=== PATIENT | female | born 1990 | race Caucasian/White ===

== ENCOUNTER 2020-04-18 00:27 | Outpatient (CLI) | payer BC, SELFPAY ==
--- NOTE | 2020-04-18 | DI.US_ITS ---
EXAM: US OB 2-3 TRIMESTER CLINICAL HISTORY: ANATOMY SCAN Z34.02 SUPERVISION NORMAL TECHNIQUE: Ultrasound performed using standard protocol. COMPARISON: No exams were available for comparison FINDINGS: Ob ultrasound was performed utilizing 2nd trimester protocol. biometry is consistent with gest ational age of 20 weeks 5 days and an EDC of August 31, 2020. Placenta is posterior with no evidence of placenta previa. There is visually a normal quantity of am niotic fluid. anomaly screen is within normal limits as per the attached checklist. heart rate is 155 BPM. IMPRESSION: DATA REPOSITORY:
== END 2020-04-18 00:47 ==
PROVIDERS: PCP Family Medicine; Visit Provider Family Medicine
DX: Z34.92 Encounter for supervision of normal pregnancy, unspecified, second trimester (principal)
CPT/HCPCS: 76805

== ENCOUNTER 2020-09-01 10:00 | Outpatient (CLI) | payer BC, SELFPAY ==
[2020-09-01 10:38] VITALS: BP 151/99; PULSE 107; TEMP 36.9
[2020-09-01 10:49] VITALS: BP 151/99; PULSE 107
[2020-09-01 11:09] VITALS: BP 137/72; PULSE 93
--- NOTE | 2020-09-01 11:12 | W.OBNST ---
Date of service: 09/01/20 Time of Service: 11:13 NST Evaluation Reason for NST Reasons for Nonstress Test: DECREASED MOVEMENT Gestational Age Gestational Age in Weeks and Days: 40 Weeks and 1Days Test and Monitor Explained Test/Monitor Explained: Test Explained and Monitor Explained Vital Signs Blood Pressure: 151/99 (137/72 on repeat) Pulse: 107 Temperature: 36.9 C Urine Results Urine Protein: Negative Urine Ketones: Negative Urine Glucose: Positive Urine Blood: Positive NST Information Date on Monitor: 09/01/20 Time on Monitor: 10:43 Date off Monitor: 09/01/20 Time off Monitor: 11:07 Total Time on Monitor: 24 NST Interventions: PO Hydration NST Evaluation Patient States Movement: Present FHR Baseline: 145 Variability: Moderate 6-25 bpm Accelerations: 15x15 Decelerations: None NST Results: Reactive Note NST Note Note: 30 yo at 40w 1 d who called with absent movement for several hours. 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 Patient is eating and drinking well. Called last night with some spotting after having her membranes stripped on , she reports she has had no further episodes of spotting today. She feels well, no contractions, no LOF. Denies headache, edema, visual changes, abdominal pain. CE on 07/22/-3 and vertex. Patient placed on monitor for 20 minutes, cat 1 with accels and mod variability, no decels, 2 contractions 15 minutes apart that she did not feel. BP initially elevated but improved to 137/72 with no proteinuria. Discharged to home with return precautions. Has appointment Thursday and will plan for induction Thursday night for postdates and elevated BP NST Reviewed and Verified by: Cristobal
[2020-09-01 11:16] VITALS: BP 151/99; PULSE 107; TEMP 36.9
== END 2020-09-01 11:20 | disposition home or self-care (01) ==
LOC: BCD 10:03 → OBS 10:37
PROVIDERS: PCP Family Medicine; Visit Provider Family Medicine
DX: O36.8130 Decreased fetal movements, third trimester, not applicable or unspecified (principal); Z3A.40 40 weeks gestation of pregnancy
CPT/HCPCS: 59025

== ENCOUNTER 2020-09-03 22:35 | Observation (INO) | payer BC, SELFPAY ==
[2020-09-03 23:55] VITALS: BP 135/78; PULSE 99
[2020-09-04 00:15] VITALS: BP 135/78; TEMP 36.6
[2020-09-04 00:29] LABS: ROM Plus Negative
== END 2020-09-04 01:00 | disposition home or self-care (01) ==
LOC: OBS 09-04 08:32
PROVIDERS: Admitting Provider Family Medicine; PCP Family Medicine; Visit Provider Family Medicine
DX: O13.3 Gestational [pregnancy-induced] hypertension without significant proteinuria, third trimester (principal)
CPT/HCPCS: 84112

== ENCOUNTER 2020-09-04 10:56 | Inpatient (IN) | payer BC, SELFPAY ==
[2020-09-04] VITALS (60 sets, daily range): BP systolic 117–151; BP diastolic 55–87; PULSE 80–123; RESP 14–16; TEMP 36.8–36.9; O2SAT 97–100
--- NOTE | 2020-09-04 11:32 | W.PM.OBHPL1 ---
Date of service: 09/04/20 Time of Service: 11:32 Assessment and Plan Assessment and plan (1) : Status: Acute Assessment and plan: Latent phase ofterm labor with minimal cervical change but elevated BP. Will admit and augment with pitocin. Monitor BPs, no proteinuria, no severe features. Treat as necessary. Qualifiers: Weeks of gestation: 40 weeks Qualified Code(s): Z3A.40 - 40 weeks gestation of (2) Gestational hypertension affecting first : Status: Acute Assessment and plan: see above OB-HPI Labor/Delivery History of Present Illness Reason for Visit: LABOR Chief Complaint: Uterine Contractions; Signs/Symptoms Gestational HTN , Associated Signs and Symptoms of GestationalHTN: elevated bp. YAAKOV Calculator Estimated Delivery Date Method Current WG Current Estimate 08/31/20 LMP (Certain) 40w 4d History of Present Expected Delivery Route/Plan 30y at 40.4w by LMP with GBS- Rh- HepB- RI. complicated by elevated blood pressures in the last few weeks with normal labs and no proteinuria. No symptoms including headache, vision changes, or increased edema. Plan had been for induction for hypertension of , but she began harika spontaneously yesterday morning. She has had mild contractions every 5-7 min since then, but made no cervical change. SVE this morning in the office was 1/50/-2. BP in the office was 160/90, so she was admitted in early labor for augmentation due to hypertension. Here, her BP was normal. Assessment: History Reviewed & Current Informed Consent Informed Consent: Augmentation of Labor Review of Systems All systems reviewed & are unremarkable except as noted in HPI and below PFSH Social History Smoking risk assessment performed?: No History History 2 Para 0 Hx # Term Pregnancies Multiple births Hx # Pregnancies Ectopic pregnancies AB induced Hx Number of Living Children AB spontaneous Exam Physical Exam Vital Signs Reviewed: Yes Detailed Labor and Delivery Exam Dilation: 1 Effacement (%): 50 station: -2 Cervix position: anterior Consistency: soft Friedman Score: Cervical Points Exam 0 1 2 3 Dilation Closed 1-2cm 3-4 cm 5-6cm Effacement 0-30% 40-50% 60-70% 80% Consistency Firm Medium Soft Station -3 -2 -1,0 +1,+2 Position Posterior Mid Anterior FRIEDMAN Score(Cervical Ripeness Score): 7 Amniotic Membrane Status: Intact Monitor Mode: External Contraction Frequency(min): 5 Contraction Duration(sec): 60-90 Contraction Intensity: Mild Fetus A Heart Rate Baseline: 150 Monitor Accelerations: 15 X 15 Monitor Decelerations: Early Variability: Moderate (6-25 BPM) Presentation: Cephalic Categories: Category I Respiratory Exam Respiratory Exam: Normal Cardiovascular Exam Cardiovascular Exam: Normal Abdominal Exam Abdominal Exam: Normal Detailed Neurological Exam Neurological: Present alert and oriented X3 Comments: 2+ patellar reflexes bilaterally Results Results Group Beta Strep: Negative Blood Type: O- Rubella Status: Immune Varicella Immunity: Not Tested Risk Assessment Risk for Shoulder Dystocia Increased Risk?: No Risk for Pre-Eclampsia Daily Dose ASA Indicated: No Yes, if one or more: POSTIVE FOR: Hx Pre-E/Gest HTN; NEGATIVE FOR: Chronic HTN, Multiple Gestation, Pre-gestational DM, Renal Disease, Systemic Lupus or APA Syndrome Yes, if 2 or more: NEGATIVE FOR: Nulliparity, Age>= 35 yrs, >10yr btwn pregnancies, BMI>30, ethinicty, Mother/Sister w/ Pre-E or Previous IUGR Risk for Post- Hemorrhage Initial: NEGATIVE FOR: Multiple Gestation, Previous PPH, Known Clotting Deficiency, Grand Multiparity or Anticoagulation At Risk?: No Risks Reviewed Risks Reviewed Upon Admission: Yes
[2020-09-04 11:55] LABS: HGB 11.3 g/dL (11.2-15.7); MCH 27.8 pg (27.0-33.0); MCHC 33.2 % (32.0-36.0); MCV 83.7 fL (80-95); MPV 9.9 fL (8.0-11.0); Platelet Count 207 10^3/uL (130-400); RBC 4.06 10^6/uL (3.93-5.22); RDW-SD 39.7 fL; WBC 14.76 10^3/uL (4.4-10.8)
[2020-09-04] MEDS: Lactated Ringers 1,000 ML 125 ML IV ×2 (12:19→21:11)
[2020-09-04] MEDS: Oxytocin/Normal Saline 30 UNIT/500 ML BAG 4 UNITS IV (12:19)
[2020-09-04 12:27] LABS: Influenza A PCR Negative (Negative); Influenza B PCR Negative (Negative); RSV PCR Negative (Negative)
[2020-09-04 12:28] LABS: COVID-19 PCR Negative (Negative)
--- NOTE | 2020-09-04 14:17 | W.PM.OBNL1 ---
Date of service: 09/04/20 Time of Service: 14:19 Informed Consent Informed Consent: Augmentation of Labor Pelvic Exam Dilation: 2 Effacement (%): 50 station: -2 Cervix Position: anterior Consistency: soft BISHOPS Score(Cervical Ripeness Score): 7 Vaginal Exam Presentation: Cephalic Contractions Monitor Mode: External Contraction Frequency(min): 5 Contraction Duration(sec): 60 Intensity: Mild Fetus A Presentation: Cephalic Variability: Moderate (6-25 BPM) Categories: Category I FHR Rhythm: Regular Characteristics: Normal Accelerations: 15 X 15 Decelerations: None Amniotic Membrane Status: Intact Assessment and Plan Assessment and plan (1) Gestational hypertension affecting first : Status: Acute Assessment and plan: see above (2) : Status: Acute Assessment and plan: Doing well, slight change in SVE. Will continue to titrate up pitocin. BP all very normal here. Continue to monitor. Qualifiers: Weeks of gestation: 40 weeks Qualified Code(s): Z3A.40 - 40 weeks gestation of Objective Abnormal lab results 09/04/20 Range/Units 11:40 WBC 14.76 H (4.4-10.8) 10^3/uL Hct 34.0 L (36.0-46.0) % Temp Pulse Resp BP Pulse Ox 36.9 C 100 H 14 119/72 98 09/04/20 13:18 09/04/20 13:09 09/04/20 11:15 09/04/20 13:09 09/04/20 13:18 Laboratory Results WBC 14.76 10^3/uL (4.4-10.8) H 09/04/20 11:40 RBC 4.06 10^6/uL (3.93-5.22) 09/04/20 11:40 Hgb 11.3 g/dL (11.2-15.7) 09/04/20 11:40 Hct 34.0 % (36.0-46.0) L 09/04/20 11:40 MCV 83.7 fL (80-95) 09/04/20 11:40 MCH 27.8 pg (27.0-33.0) 09/04/20 11:40 MCHC 33.2 % (32.0-36.0) 09/04/20 11:40 RDW 13.0 % (11.7-14.6) 09/04/20 11:40 Plt Count 207 10^3/uL (130-400) 09/04/20 11:40 MPV 9.9 fL (8.0-11.0) 09/04/20 11:40 COVID-19 Source Nasopharyx 09/04/20 11:35 SARS-CoV-2 (PCR) Negative (Negative) 09/04/20 11:35 Influenza Type A (PCR) Negative (Negative) 09/04/20 11:35 Influenza Type B (PCR) Negative (Negative) 09/04/20 11:35 RSV (PCR) Negative (Negative) 09/04/20 11:35 Patient ABO/Rh O Negative 09/04/20 11:40 Antibody Screen Positive 09/04/20 11:40 Antibody Identification Anti-D 09/04/20 11:40 Subjective Patient Reports: No new Complaints Interval history since last seen: Michell is doing well. Pitocin has increased the intensity of her contractions somewhat but still fairly comfortable. Results Hemoglobin/Hematocrit: Hgb 11.3 g/dL (11.2-15.7) 09/04/20 11:40 Hct 34.0 % (36.0-46.0) L 09/04/20 11:40 Abnormal Lab Findings: Abnormal Labs 09/04/20 11:40 WBC 14.76 H Hct 34.0 L
--- NOTE | 2020-09-04 16:23 | W.PM.OBNL1 ---
Date of service: 09/04/20 Time of Service: 16:23 Informed Consent Informed Consent: Augmentation of Labor Pelvic Exam Dilation: 3 Effacement (%): 60 station: -2 Cervix Position: anterior Consistency: soft Vaginal Exam Presentation: Cephalic Contractions Monitor Mode: External Contraction Frequency(min): 2 Contraction Duration(sec): 60 Intensity: Mild/Moderate Fetus A Monitor: External (US) Heart Rate Baseline: 150 Presentation: Cephalic Variability: Moderate (6-25 BPM) Categories: Category I FHR Rhythm: Regular Characteristics: Normal Accelerations: 15 X 15 Decelerations: Variable Recurrence: Intermittent Amniotic Membrane Status: Intact Assessment and Plan Assessment and plan (1) Gestational hypertension affecting first : Status: Acute Assessment and plan: Last BP 139/85, likely due to increased pain. Continue to monitor. (2) : Status: Acute Assessment and plan: Michell is progressing slowly, SVE now 3/60/-2. She is more uncomfortable and would like to use Nitrous. Anesthesia has consented her and she would like an epidural at some point. Pitocin at 8 with contractions q2m. Continue present management. Consider AROM once she is more comfortable. Qualifiers: Weeks of gestation: 40 weeks Qualified Code(s): Z3A.40 - 40 weeks gestation of Objective Abnormal lab results 09/04/20 Range/Units 11:40 WBC 14.76 H (4.4-10.8) 10^3/uL Hct 34.0 L (36.0-46.0) % Temp Pulse Resp BP Pulse Ox 36.8 C 101 H 16 139/85 98 09/04/20 14:27 09/04/20 14:27 09/04/20 14:27 09/04/20 14:27 09/04/20 13:18 Laboratory Results WBC 14.76 10^3/uL (4.4-10.8) H 09/04/20 11:40 RBC 4.06 10^6/uL (3.93-5.22) 09/04/20 11:40 Hgb 11.3 g/dL (11.2-15.7) 09/04/20 11:40 Hct 34.0 % (36.0-46.0) L 09/04/20 11:40 MCV 83.7 fL (80-95) 09/04/20 11:40 MCH 27.8 pg (27.0-33.0) 09/04/20 11:40 MCHC 33.2 % (32.0-36.0) 09/04/20 11:40 RDW 13.0 % (11.7-14.6) 09/04/20 11:40 Plt Count 207 10^3/uL (130-400) 09/04/20 11:40 MPV 9.9 fL (8.0-11.0) 09/04/20 11:40 COVID-19 Source Nasopharyx 09/04/20 11:35 SARS-CoV-2 (PCR) Negative (Negative) 09/04/20 11:35 Influenza Type A (PCR) Negative (Negative) 09/04/20 11:35 Influenza Type B (PCR) Negative (Negative) 09/04/20 11:35 RSV (PCR) Negative (Negative) 09/04/20 11:35 Patient ABO/Rh O Negative 09/04/20 11:40 Antibody Screen Positive 09/04/20 11:40 Antibody Identification Anti-D 09/04/20 11:40 Subjective Patient Reports: No new Complaints Interval history since last seen: Contractions have gotten more painful. Results Hemoglobin/Hematocrit: Hgb 11.3 g/dL (11.2-15.7) 09/04/20 11:40 Hct 34.0 % (36.0-46.0) L 09/04/20 11:40 Abnormal Lab Findings: Abnormal Labs 09/04/20 11:40 WBC 14.76 H Hct 34.0 L
--- NOTE | 2020-09-04 17:25 | W.PM.OBNL1 ---
Date of service: 09/04/20 Time of Service: 17:26 Informed Consent Informed Consent: Augmentation of Labor Pelvic Exam station: -2 Cervix Position: anterior Consistency: soft Vaginal Exam Presentation: Cephalic Contractions Monitor Mode: External Contraction Frequency(min): 3 Contraction Duration(sec): 60 Intensity: Moderate Fetus A Monitor: External (US) Variability: Moderate (6-25 BPM) Categories: Category I Characteristics: Normal Accelerations: 15 X 15 Decelerations: Variable Recurrence: Intermittent Amniotic Membrane Status: Ruptured Assessment Note: AROM performed with light mec, moderate fluid Assessment and Plan Assessment and plan (1) Gestational hypertension affecting first : Status: Acute Assessment and plan: BPs stable (2) : Status: Acute Assessment and plan: Discussed AROM with Ramírez and they agreed to proceed. Performed without incident, light mec. Since rupture, some mild late decelerations but lots of movement in mom, with strip effected. Will monitor closely. Qualifiers: Weeks of gestation: 40 weeks Qualified Code(s): Z3A.40 - 40 weeks gestation of Objective Abnormal lab results 09/04/20 Range/Units 11:40 WBC 14.76 H (4.4-10.8) 10^3/uL Hct 34.0 L (36.0-46.0) % Temp Pulse Resp BP Pulse Ox 36.8 C 101 H 16 139/85 98 09/04/20 14:27 09/04/20 14:27 09/04/20 14:27 09/04/20 14:27 09/04/20 13:18 Laboratory Results WBC 14.76 10^3/uL (4.4-10.8) H 09/04/20 11:40 RBC 4.06 10^6/uL (3.93-5.22) 09/04/20 11:40 Hgb 11.3 g/dL (11.2-15.7) 09/04/20 11:40 Hct 34.0 % (36.0-46.0) L 09/04/20 11:40 MCV 83.7 fL (80-95) 09/04/20 11:40 MCH 27.8 pg (27.0-33.0) 09/04/20 11:40 MCHC 33.2 % (32.0-36.0) 09/04/20 11:40 RDW 13.0 % (11.7-14.6) 09/04/20 11:40 Plt Count 207 10^3/uL (130-400) 09/04/20 11:40 MPV 9.9 fL (8.0-11.0) 09/04/20 11:40 COVID-19 Source Nasopharyx 09/04/20 11:35 SARS-CoV-2 (PCR) Negative (Negative) 09/04/20 11:35 Influenza Type A (PCR) Negative (Negative) 09/04/20 11:35 Influenza Type B (PCR) Negative (Negative) 09/04/20 11:35 RSV (PCR) Negative (Negative) 09/04/20 11:35 Patient ABO/Rh O Negative 09/04/20 11:40 Antibody Screen Positive 09/04/20 11:40 Antibody Identification Anti-D 09/04/20 11:40 Subjective Interval history since last seen: Michell is getting some relief from nitrous. She is getting tired and uncomfortable Results Hemoglobin/Hematocrit: Hgb 11.3 g/dL (11.2-15.7) 09/04/20 11:40 Hct 34.0 % (36.0-46.0) L 09/04/20 11:40 Abnormal Lab Findings: Abnormal Labs 09/04/20 11:40 WBC 14.76 H Hct 34.0 L Procedure Procedures: Other (AROM)
[2020-09-04] MEDS: Lactated Ringers 500 ML IV (17:50)
[2020-09-04] MEDS: FentaNYL/ROPIvacaine 2 mcg/ml and 0.1% 200 ML CADD Cassette EP (19:06)
--- NOTE | 2020-09-04 20:04 | W.PM.OBNL1 ---
Date of service: 09/04/20 Time of Service: 20:04 Informed Consent Informed Consent: Augmentation of Labor Pelvic Exam Dilation: 5.5 Effacement (%): 80 station: -2 Cervix Position: anterior Consistency: soft Vaginal Exam Presentation: Cephalic Contractions Monitor Mode: External Contraction Frequency(min): 6 Contraction Duration(sec): 45 Fetus A Monitor: External (US) Heart Rate Baseline: 150 Presentation: Cephalic Variability: Moderate (6-25 BPM) Categories: Category I Characteristics: Normal Accelerations: 15 X 15 Decelerations: None Amniotic Membrane Status: Ruptured Assessment and Plan Assessment and plan (1) Gestational hypertension affecting first : Status: Acute Assessment and plan: BP stable, continue to monitor (2) : Status: Acute Assessment and plan: Michell is doing well, more comfortable with epidural in despite a difficult placement. Resting now. Pitocin continues to be titrated, now at 12. SVE 5.5/80/-2. Continue current management. Qualifiers: Weeks of gestation: 40 weeks Qualified Code(s): Z3A.40 - 40 weeks gestation of Objective Abnormal lab results 09/04/20 Range/Units 11:40 WBC 14.76 H (4.4-10.8) 10^3/uL Hct 34.0 L (36.0-46.0) % Temp Pulse Resp BP Pulse Ox 36.8 C 98 H 16 136/65 99 09/04/20 19:41 09/04/20 20:01 09/04/20 19:41 09/04/20 20:01 09/04/20 19:10 Laboratory Results WBC 14.76 10^3/uL (4.4-10.8) H 09/04/20 11:40 RBC 4.06 10^6/uL (3.93-5.22) 09/04/20 11:40 Hgb 11.3 g/dL (11.2-15.7) 09/04/20 11:40 Hct 34.0 % (36.0-46.0) L 09/04/20 11:40 MCV 83.7 fL (80-95) 09/04/20 11:40 MCH 27.8 pg (27.0-33.0) 09/04/20 11:40 MCHC 33.2 % (32.0-36.0) 09/04/20 11:40 RDW 13.0 % (11.7-14.6) 09/04/20 11:40 Plt Count 207 10^3/uL (130-400) 09/04/20 11:40 MPV 9.9 fL (8.0-11.0) 09/04/20 11:40 COVID-19 Source Nasopharyx 09/04/20 11:35 SARS-CoV-2 (PCR) Negative (Negative) 09/04/20 11:35 Influenza Type A (PCR) Negative (Negative) 09/04/20 11:35 Influenza Type B (PCR) Negative (Negative) 09/04/20 11:35 RSV (PCR) Negative (Negative) 09/04/20 11:35 Patient ABO/Rh O Negative 09/04/20 11:40 Antibody Screen Positive 09/04/20 11:40 Antibody Identification Anti-D 09/04/20 11:40 Subjective Interval history since last seen: Michell has gotten her epidural and is now much more comfortable despite a difficult insertion. Minimally feeling contractions, getting some rest. Results Hemoglobin/Hematocrit: Hgb 11.3 g/dL (11.2-15.7) 09/04/20 11:40 Hct 34.0 % (36.0-46.0) L 09/04/20 11:40 Abnormal Lab Findings: Abnormal Labs 09/04/20 11:40 WBC 14.76 H Hct 34.0 L
[2020-09-04] MEDS: Ondansetron O.D.T. 4 MG TABEF 8 MG PO (21:27)
--- NOTE | 2020-09-04 22:51 | W.PM.OBNL1 ---
Date of service: 09/04/20 Time of Service: 22:51 Informed Consent Informed Consent: Augmentation of Labor Pelvic Exam Dilation: 10 Effacement (%): 100 station: 0 Cervix Position: anterior Consistency: soft Vaginal Exam Presentation: Cephalic Contractions Monitor Mode: External Contraction Frequency(min): 4 Contraction Duration(sec): 60 Fetus A Monitor: External (US) Heart Rate Baseline: 140 Presentation: Cephalic Variability: Moderate (6-25 BPM) Categories: Category I Characteristics: Normal Accelerations: 15 X 15 Decelerations: Variable Recurrence: Intermittent Amniotic Membrane Status: Ruptured Assessment and Plan Assessment and plan (1) Gestational hypertension affecting first : Status: Acute Assessment and plan: Pressures are normal (2) : Status: Acute Assessment and plan: Michell is doing great. She is fully dilated but not feeling like she needs to push. She will continue to labor down and let us know when she feels the urge to push. FHT category 1. Qualifiers: Weeks of gestation: 40 weeks Qualified Code(s): Z3A.40 - 40 weeks gestation of Objective Abnormal lab results 09/04/20 Range/Units 11:40 WBC 14.76 H (4.4-10.8) 10^3/uL Hct 34.0 L (36.0-46.0) % Temp Pulse Resp BP Pulse Ox 36.8 C 113 H 16 128/87 99 09/04/20 19:41 09/04/20 22:46 09/04/20 19:41 09/04/20 22:46 09/04/20 19:10 Laboratory Results WBC 14.76 10^3/uL (4.4-10.8) H 09/04/20 11:40 RBC 4.06 10^6/uL (3.93-5.22) 09/04/20 11:40 Hgb 11.3 g/dL (11.2-15.7) 09/04/20 11:40 Hct 34.0 % (36.0-46.0) L 09/04/20 11:40 MCV 83.7 fL (80-95) 09/04/20 11:40 MCH 27.8 pg (27.0-33.0) 09/04/20 11:40 MCHC 33.2 % (32.0-36.0) 09/04/20 11:40 RDW 13.0 % (11.7-14.6) 09/04/20 11:40 Plt Count 207 10^3/uL (130-400) 09/04/20 11:40 MPV 9.9 fL (8.0-11.0) 09/04/20 11:40 COVID-19 Source Nasopharyx 09/04/20 11:35 SARS-CoV-2 (PCR) Negative (Negative) 09/04/20 11:35 Influenza Type A (PCR) Negative (Negative) 09/04/20 11:35 Influenza Type B (PCR) Negative (Negative) 09/04/20 11:35 RSV (PCR) Negative (Negative) 09/04/20 11:35 Patient ABO/Rh O Negative 09/04/20 11:40 Antibody Screen Positive 09/04/20 11:40 Antibody Identification Anti-D 09/04/20 11:40 Subjective Interval history since last seen: Michell is comfortable, feeling minimal pressure with contractions. She is tired Results Hemoglobin/Hematocrit: Hgb 11.3 g/dL (11.2-15.7) 09/04/20 11:40 Hct 34.0 % (36.0-46.0) L 09/04/20 11:40 Abnormal Lab Findings: Abnormal Labs 09/04/20 11:40 WBC 14.76 H Hct 34.0 L
[2020-09-05] VITALS (13 sets, daily range): BP systolic 122–137; BP diastolic 60–90; PULSE 94–126; RESP 16–20; TEMP 36.4–37.1; O2SAT 97–99
--- NOTE | 2020-09-05 00:25 | W.OBDELIVERY ---
Date of service: 09/05/20 Time of Service: 00:25 OB Labor/ Delivery Information Baby A Delivery Delivery Method: Spontaneaous Presentation: Cephalic Cephalic Position: Vertex Vertex Position: Left Occipital Anterior Cord Description-Baby A: 3 Vessels and Nuchal Cord (single loose nuchal cord, delivered through) Amniotic Fluid: Meconium (light mec) Estimated Blood Loss: 100 Delivery Outcome: Liveborn Complications: none Infant Transferred: Remains with Mother Note: 30y X6Wmuw2 with Rh- GBS- RI, HSv+ on acyclovir since 36weeks sp . complicated by hypertension without proteinuria, not in the sever range. Labor was uncomplicated and there was a category 1 strip throughout. Pitocin was effective, with no negative effects on baby. Epidural effective. Mom pushed for approx 40min with excellent progress. Baby born in NATALIE position with loose nuchal cord. Delivered through. Stunned immediately but responded to stimulation, apgars of 7 and 9. No lacerations. Mom doing well. Providers Doctor: Tal Gunter Nurse: Pam Betancourt Nurse: Danielle Mccoy Other: Medical Student assisted, Susu CASTRO also present at Labor/Delivery Information Number of Babies in Womb: 1 Steroids Given: None Reason Steroids Not Administered: N/A Group Beta Strep: Negative Antibiotics Administered: No Rubella Status: Immune Blood Type: O- Varicella Immunity: Not Tested Born En Route: No Shoulder Dystocia: No Stages of Labor Onset of Labor Date: 09/04/20 Onset of Labor Time: 11:00 Complete Dilatation Date: 09/04/20 Complete Dilatation Time: 22:39 Labor - Stage 1 Duration: 0 minutes ROM Baby A: 09/04/20 ROM Baby A: 17:10 ROM Total Time- Baby A: [id number] Delivery Date-Baby A: 09/05/20 Infant Delivery Time-Baby A: 00:10 Labor Stage 2 Duration: 1 hours and 31 minutes Placenta Delivery Date-Baby A: 09/05/20 Placenta Delivery Time-Baby A: 00:15 Labor-Stage 3 Duration: 5 minutes Total Length of Labor-Baby A: 13 hours and 10 minutes Placenta Cultured: No Placenta Status: Delivered Baby A Infant Gender: Male Gestational Status: Term (39-41.6 wks) Gestational Age in Weeks/Days: 40 Weeks and 5 Days Score-1 Minute Interval(Baby A) Heart Rate-1 minute: 100 BPM or Greater Respiratory Effort- 1 minute: Spontaneous/Strong Cry Muscle Tone-1 minute: Minimal Flexion/Extension Reflex Response-1 minute: Prompt Response Color-1 minute: Pallor or Cyanosis Score-5 Minute Interval(Baby A) Heart Rate- 5 minute: 100 BPM or Greater Respiratory Effort-5 minute: Spontaneous/Strong Cry Muscle Tone-5 minute: Active Movement Reflex Response-5 minute: Prompt Response Color-5 minute: Bluish Hands or Feet Shoulder Dystocia Delivery Times Date of Delivery of Head: 09/05/20
[2020-09-05] MEDS: Acetaminophen 325 MG TAB 650 MG PO ×2 (10:02→20:20)
[2020-09-05] MEDS: Ibuprofen 600 MG TAB PO ×2 (10:03→20:21)
--- NOTE | 2020-09-05 15:53 | W.PM.OBPNV1 ---
Date of service: 09/05/20 Time of Service: 15:53 Assessment and Plan Assessment and plan (1) care following vaginal delivery: Status: Acute Assessment and plan: day 0 ss/p . Doing well. No issues or concerns. Continue routine care. No need for rhogam as is Rh neg as well. (2) Gestational hypertension affecting first : Status: Acute Assessment and plan: BP has been acceptable, consistently <140/90 since delivery. Continue to monitor. Subjective Subjective Interval history: 30 yo who delivered at 12:10am this morning via after IOL for postdates and gHTN. Delivery was uncomplicated, no lacerations. She is doing well. Voiding and passing flatus, no BM yet. Eating and drinking well. Minimal pain. Bleeding is decreasing. Mood is good but very tired. Baby is having difficulty nursing but otherwise Michell has no questions or concerns. Patient comments: No complaints [place] baby status: Strong Bonding Observed [place] feeding status: Exclusively breast feeding Exam Physical Exam Vital signs: Temp Pulse Resp BP Pulse Ox 37.1 C 94 H 20 122/80 97 09/05/20 12:30 09/05/20 12:30 09/05/20 12:30 09/05/20 12:30 09/05/20 12:30 Constitutional Constitutional: no acute distress Respiratory Exam Respiratory Exam: Normal Fundal Exam Fundus: Below Umbilicus and Firm Exam Perineum: Intact Extremities Exam Extremity Exam: Normal Psychiatric Exam Psychiatric Exam: Normal Results Hemoglobin/Hematocrit: Hgb 11.3 g/dL (11.2-15.7) 09/04/20 11:40 Hct 34.0 % (36.0-46.0) L 09/04/20 11:40 Abnormal Lab Findings: Abnormal Labs 09/04/20 11:40 WBC 14.76 H Hct 34.0 L
[2020-09-05] MEDS: Docusate Sodium 100 MG CAP PO (20:20)
[2020-09-06 08:00] VITALS: BP 128/86; PULSE 93; RESP 16; TEMP 36.7; O2SAT 98
[2020-09-06] MEDS: Acetaminophen 325 MG TAB 650 MG PO (09:51)
[2020-09-06] MEDS: Ibuprofen 600 MG TAB PO (09:51)
--- NOTE | 2020-09-06 11:27 | W.PM.OBDISCH ---
DS: Diagnosis Discharge Diagnosis (1) care following vaginal delivery: Status: Acute (2) Gestational hypertension affecting first : Status: Acute Discharge Plan Disposition Patient Disposition: HOME Condition: Good Discharge Details Reason For Visit: LABOR Admit Date/Time: 09/04/20 11:31 Admit Provider: Tal Gunter Attending Provider: Tal Gunter Primary Care Provider: Tal Gunter Hospital Course Hospital Course: expected post course - steadi;y decreased loichia, minimal cramps, pain doing all self care - showered, eating , up to br independently Discharge Instructions Additional Instructions: please call or seek care if questions, problems - we'll expect you for pp visit 10:30 thursday in [place] Stand Alone Forms: BC Post Vaginal Deliver Activity:: Activity as Tolerated Equipment/Supplies:: No Equipment Needed Diet:: As Tolerated Discharge Orders Discharge Orders: Discharge Order (Routine); Ordered 09/06/20 Ordered By: Jh Knight Discharge Data Discharge Date/Time-TO BE ENTERED AT DEPARTURE: 09/06/20 12:35 OB:DS Summary Summary Vaginal Delivery Method: Spontaneaous Episiotomy Description: None Laceration Description: None Laceration Extension: N/A Contraception Discussed Contraception Discussed: Yes, Infant Gender-Baby A: Male weight: 3590 g Status at Discharge Functional status at discharge: independent ambulation Overall status at discharge: patient is back to baseline Mental Status: mental status grossly normal Speech and Movement: speech and movement normal Mood: congruent mood Affect: normal affect Exam Physical Exam Vital signs: Temp Pulse Resp BP Pulse Ox 36.7 C 93 H 16 128/86 98 09/06/20 08:00 09/06/20 08:00 09/06/20 08:00 09/06/20 08:00 09/06/20 08:00 Notable Details: bright, alert, comfortable Constitutional Constitutional: no acute distress HEENT Exam HEENT Exam: Not Done Neck Exam Neck Exam: Normal Respiratory Exam Respiratory Exam: Not Done Cardiovascular Exam Cardiovascular Exam: Not Done Abdominal Exam Abdomen: Diastasis Fundal Exam Fundus: Below Umbilicus and Firm Extremities Exam Extremity Exam: Edema (minimal bilat edema) Back/Spine/Pelvis Exam Back Exam: Not Done Skin Exam Skin Exam: Normal Neurological Exam Neurological Exam: Normal Psychiatric Exam Psychiatric Exam: Normal [facility] Social History Smoking/Tobacco Use Status: Never Smoking risk assessment performed?: Yes Alcohol Intake: never Substance use type: does not use History History 2 Para 0 Hx # Term Pregnancies Multiple births Hx # Pregnancies Ectopic pregnancies AB induced Hx Number of Living Children AB spontaneous DS: Data Vitals/I&O Vitals and I&O: Vital Signs Temperature 36.7 C 09/06/20 08:00 Pulse 93 H 09/06/20 08:00 Pulse Rhythm Regular 09/06/20 08:00 Respiratory Rate 16 09/06/20 08:00 Respiratory Depth Normal 09/04/20 22:25 Blood Pressure 128/86 09/06/20 08:00 Blood Pressure Mean 100 09/06/20 08:00 Pulse Oximetry 98 09/06/20 08:00 Oxygen Delivery Method Room Air 09/04/20 13:18 Oxygen Flow Rate 0 09/04/20 13:18 Pain Level 5 09/06/20 09:51 Comment 09/05/20 12:30 Intake & Output 09/05/20 09/05/20 09/06/20 11:59 23:59 11:59 Intake Total 500 / 500 Output Total 1500 / 2000 500 / 2000 Balance -1000 / -1500 -500 / -1500 Intake: IV 500 / 500 Output: Urine 1500 / 2000 500 / 2000 Other: Urine Color Yellow
--- NOTE | 2020-09-06 11:34 | W.PM.OBDISCH ---
DS: Diagnosis Discharge Diagnosis (1) care following vaginal delivery: Status: Acute (2) Gestational hypertension affecting first : Status: Acute Discharge Plan Discharge Details Reason For Visit: LABOR Admit Date/Time: 09/04/20 11:31 Admit Provider: Tal Gunter Attending Provider: Tal Gunter Primary Care Provider: Tal Gunter Hospital Course Hospital Course: expected post course - steadi;y decreased loichia, minimal cramps, pain doing all self care - showered, eating , up to br independently Discharge Instructions Additional Instructions: please call or seek care if questions, problems - we'll expect you for pp visit 10:30 thursday in [place] Activity:: Activity as Tolerated Activity:: Activity as Tolerated Equipment/Supplies:: No Equipment Needed Diet:: As Tolerated Discharge Data Discharge Date/Time-TO BE ENTERED AT DEPARTURE: 09/06/20 11:34 Discharge Physician: Jh Knight OB:DS Summary Summary Vaginal Delivery Method: Spontaneaous Episiotomy Description: None Laceration Description: None Laceration Extension: N/A Contraception Discussed Contraception Discussed: Yes Contraceptive Plan: Undecided, Gender-Baby A: Male weight: 3590 g Status at Discharge Functional status at discharge: independent ambulation Overall status at discharge: patient is back to baseline Mental Status: mental status grossly normal Speech and Movement: speech and movement normal Mood: congruent mood Affect: normal affect Exam Physical Exam Vital signs: Temp Pulse Resp BP Pulse Ox 36.7 C 93 H 16 128/86 98 09/06/20 08:00 09/06/20 08:00 09/06/20 08:00 09/06/20 08:00 09/06/20 08:00 [facility] Social History Smoking/Tobacco Use Status: Never Smoking risk assessment performed?: Yes Alcohol Intake: never Substance use type: does not use History History 2 Para 0 Hx # Term Pregnancies Multiple births Hx # Pregnancies Ectopic pregnancies AB induced Hx Number of Living Children AB spontaneous DS: Data Vitals/I&O Vitals and I&O: Vital Signs Temperature 36.7 C 09/06/20 08:00 Pulse 93 H 09/06/20 08:00 Pulse Rhythm Regular 09/06/20 08:00 Respiratory Rate 16 09/06/20 08:00 Respiratory Depth Normal 09/04/20 22:25 Blood Pressure 128/86 09/06/20 08:00 Blood Pressure Mean 100 09/06/20 08:00 Pulse Oximetry 98 09/06/20 08:00 Oxygen Delivery Method Room Air 09/04/20 13:18 Oxygen Flow Rate 0 09/04/20 13:18 Pain Level 5 09/06/20 09:51 Comment 09/05/20 12:30 Intake & Output 09/05/20 09/05/20 09/06/20 11:59 23:59 11:59 Intake Total 500 / 500 Output Total 1500 / 2000 500 / 2000 Balance -1000 / -1500 -500 / -1500 Intake: IV 500 / 500 Output: Urine 1500 / 2000 500 / 2000 Other: Urine Color Yellow
== END 2020-09-06 12:35 | disposition home or self-care (01) | DRG 807 ==
PROVIDERS: Admitting Provider Family Medicine; PCP Family Medicine; Visit Provider Family Medicine
DX: O13.3 Gestational [pregnancy-induced] hypertension without significant proteinuria, third trimester; Z37.0 Single live birth; Z3A.40 40 weeks gestation of pregnancy; O69.81X0 Labor and delivery complicated by cord around neck, without compression, not applicable or unspecified
CPT/HCPCS: 85027; 86850; 86900; 86901; 86870